=== PATIENT | male | born 1975 | race Two or more races ===

== ENCOUNTER 2018-12-06 08:55 | Emergency (ER) | payer SELFPAY ==
[~2018-12-06] VITALS: Ht 180.3 cm; Wt 109.1 kg
[2018-12-06 08:55] VITALS: BP 133/95
== END 2018-12-06 10:45 | disposition left against medical advice (07) ==
LOC: EMS 08:55
DX: S30.0XXA Contusion of lower back and pelvis, initial encounter (principal); Z53.21 Procedure and treatment not carried out due to patient leaving prior to being seen by health care provider; X58.XXXA Exposure to other specified factors, initial encounter; Y93.89 Activity, other specified; Y92.89 Other specified places as the place of occurrence of the external cause; Y99.8 Other external cause status

== ENCOUNTER 2024-11-12 14:25 | Emergency (ER) | payer OTHER ==
[~2024-11-12] VITALS: Ht 175.3 cm; Wt 101.3 kg
[2024-11-12 14:37] VITALS: BP 156/65; PULSE 125; RESP 18; TEMP 98.3; O2SAT 96
[2024-11-12] MEDS: PERTUSS(ACELL),DIPH,TET/PF 0.5 ML SYRINGE [ADULT] IM. ONE (14:46)
== END 2024-11-12 15:12 | disposition home or self-care (01) ==
LOC: EMS 14:25
DX: T75.4XXA Electrocution, initial encounter (principal); N40.0 Benign prostatic hyperplasia without lower urinary tract symptoms; Z02.89 Encounter for other administrative examinations
CPT/HCPCS: 90715; 99283